=== PATIENT | female | born 1975 | race Caucasian/White ===

== ENCOUNTER → 2016-06-25 | Day surgery (SDC) | payer BC ==
[~2016-06-25] VITALS: Ht 30.5 cm; Wt 0.5 kg
[~2016-06-25] MED LIST: AMBIEN5 MG ORAL; ATIVAN1 MG ORAL; CATAPRES0.1 MG ORAL; CEPHALEXIN500 M1 ORAL; COREG12.5 MG ORAL; DILAUDID4 MG ORAL; Heparin 2000 units/Ns 1000ml INJ ONE; Lidocaine 1% Plain 30 ml INJ ONE; MACROBID100 MG ORAL; MORPHINE S10 MG/5 ML ORAL; NEXIUM40 MG ORAL; NORCO 10/3251 EA ORAL; NORMODYNE300 MG ORAL; OXYCODONE HCL15 M1 ORAL; OXYCONTIN40 MG ORAL; PROMETHAZINE HC50 MG ORAL; PROTONIX40 MG ORAL; REGLAN10 MG ORAL; Sodium Bicarbonate 8.4% 50ml Inj IV ONE; TRIBENZOR 40-11 EACH ORAL; TRIBENZOR 40-51 EACH ORAL; VALIUM10 MG ORAL; ZOFRAN ODT8 MG ORAL
--- NOTE | 2016-06-25 15:26 | Diagnostic Imaging Report ---
Indication: watermelon harvesting supervisor venous access Findings: After the indications, procedure, risks, complications, and alternatives of the procedure were explained, written informed consent was obtained. The right upper extremity was prepped with alcohol. All elements of maximal sterile barrier technique were followed including usage of a cap, mask, sterile gown, sterile gloves, hand hygiene and a large sterile sheet. Sonographic evaluation of the upper extremity was performed demonstrating a patent and compressible brachial vein. Access was obtained under real-time ultrasound guidance and digital image was saved and archived. An .018 wire was introduced. Needle exchanged for a 5 Spanish peel-away sheath. Measurements were obtained. A 5 Spanish dual-lumen Power PICC line catheter was cut to 8 cm and introduced over the wire. Peel-away sheath and wire were removed.Catheter was secured to the skin using 2-0 Prolene suture. Both ports aspirate and flush easily. Fluoroscopic Images show distal tip in the superior vena cava. Total fluoroscopic time 3.3 seconds Impression: Successful placement of an upper extremity PICC line catheter
== END | disposition home or self-care (01) ==
LOC: RAD 13:00 → SUR 13:00
DX: R11.2 Nausea with vomiting, unspecified (principal); R19.7 Diarrhea, unspecified; E86.0 Dehydration
CPT/HCPCS: 36569; 76937

== ENCOUNTER 2016-08-27 12:51 | Outpatient (CLI) | payer BC ==
[~2016-08-27] VITALS: Ht 152.4 cm; Wt 63.5 kg
[~2016-08-27 12:51] MED LIST changes: -Heparin 2000 units/Ns 1000ml INJ ONE; -Lidocaine 1% Plain 30 ml INJ ONE; -Sodium Bicarbonate 8.4% 50ml Inj IV ONE
[2016-08-27] MEDS ORDERED: Lidocaine 1% Plain 30 ml INJ ONE (14:00)
[2016-08-27] MEDS ORDERED: Heparin 2000 units/Ns 1000ml INJ ONE (14:00)
--- NOTE | 2016-08-27 15:47 | Diagnostic Imaging Report ---
Indications: Needs long-term IV access Technique: Procedural timeout performed. Informed consent the represent of the procedure. Ultrasound confirms patent compressible right basilic vein. Total sterile technique, including sterile probe cover and sterile gel, hat, mask, sterile gown, large sterile drape, and preparation with 2% chlorhexidine utilized. Local anesthesia with 1% lidocaine. Under real-time ultrasound guidance, puncture right basilic vein using 21-gauge needle, documented and archived, passage 0.018 guidewire under direct fluoroscopy, which was used to determine appropriate catheter length, exchange for 5 Greek peel-away sheath. 5 Greek Bard dual-lumen power PICC cut to 37 cm. It was inserted through the peel-away sheath. Peel-away sheath and guidewire removed. Catheter fixed to the skin. Both catheter ports aspirated and flushed. Patient tolerated procedure well, without immediate complication. Digital radiograph documents satisfactory catheter tip position, at the cavoatrial junction. Total fluoroscopy time one minutes. Total dose area product 17 dGycm2 Impression: Successful placement of right arm PICC under sonographic and fluoroscopic guidance, as described above.
== END 2016-08-27 14:51 | disposition home or self-care (01) ==
LOC: RAD 12:51
DX: E86.0 Dehydration (principal); R11.2 Nausea with vomiting, unspecified; R19.7 Diarrhea, unspecified
CPT/HCPCS: 36569; 76937; J1644; J2001

== ENCOUNTER 2017-05-01 12:51 | Outpatient (CLI) | payer BC ==
[~2017-05-01] VITALS: Ht 33 cm; Wt 0.5 kg
[~2017-05-01 12:51] MED LIST changes: +Heparin 2000 units/Ns 1000ml INJ ONE; +Lidocaine 1% Plain 30 ml INJ ONE
--- NOTE | 2017-05-01 15:04 | Diagnostic Imaging Report ---
Indications: Needs long-term IV access Technique: Informed consent obtained prior to this procedure. Procedure timeout performed. Ultrasound confirms patent compressible right brachial a small caliber right basilic vein. Total sterile technique, including sterile probe cover and sterile gel, hat, mask,, sterile gown, large sterile drape, and preparation with 2% chlorhexidine utilized. Local anesthesia with 1% lidocaine. Initial attempts made at accessing very small caliber basilic vein, without success. Under real-time ultrasound guidance, puncture ] vein using 21-gauge needle, documented and archived, passage 0.018 guidewire under direct fluoroscopy, which would not pass beyond the axilla. A 5 Beninese peel-away sheath was introduced. A Kumpe catheter was introduced, and a small amount of contrast injected, demonstrating a kink in the axillary vein. This was successfully negotiated with a hydrophilic guidewire, and the Kumpe catheter was then passed into the superior vena cava, used to introduce the measuring guidewire which was used to determine appropriate catheter length,. 5 Beninese Bard dual-lumen power PICC cut to 38 cm. It was inserted through the peel-away sheath. Peel-away sheath and guidewire removed. Catheter fixed to the skin. Both catheter ports aspirated and flushed. Patient tolerated procedure well, without immediate complication. Digital radiograph documents satisfactory catheter tip position, at the cavoatrial junction. Total fluoroscopy time 2.1 minutes. Total dose area product 22 dGycm2 Impression: Successful placement of right arm PICC under sonographic and fluoroscopic guidance, as described above.
== END 2017-05-01 14:51 | disposition home or self-care (01) ==
LOC: RAD 12:51
DX: E86.0 Dehydration (principal); R11.2 Nausea with vomiting, unspecified; R19.7 Diarrhea, unspecified
CPT/HCPCS: 36569; 76937; J1644; J2001; Q9967

== ENCOUNTER → 2017-11-11 | Outpatient (CLI) | payer BC ==
[~2017-11-11] VITALS: Ht 30.5 cm; Wt 0.5 kg
[~2017-11-11] MED LIST changes: -Heparin 2000 units/Ns 1000ml INJ ONE; +Heparin 2000 units/Ns 1000ml INJ SCH; -Lidocaine 1% Plain 30 ml INJ ONE; +Lidocaine 1% Plain 30 ml INJ SCH
--- NOTE | 2017-11-11 14:04 | Pre-Procedure Note/Attestation ---
Pre-Procedure Note/Attestation Complete Prior to Procedure Planned Procedure: not applicable Procedure Narrative: PICC Indications for Procedure Pre-Operative Diagnosis: needs long-term IV access Attestation I attest that I discussed the nature of the procedure; its benefits; risks and complications; and alternatives (and the risks and benefits of such alternatives ), prior to the procedure, with the patient (or the patient's legal compliance representative dealer). I attest that, if there was a reasonable possibility of needing a blood transfusion, the patient (or the patient's legal compliance representative dealer) was given the [facility] standardized written summary, pursuant to the [place] Blood Safety Act ([place] Health and Safety Code # 1645, as amended). I attest that I re-evaluated the patient just prior to the surgery and that there has been no change in the patient's H&P, except as documented below: Hernandez Napier MD Nov 11, 2017 14:04
--- NOTE | 2017-11-11 14:35 | Diagnostic Imaging Report ---
Indications: Needs long-term IV access Technique: Informed consent obtained prior to commencement of the procedure. Procedural timeout performed. Ultrasound confirms patent compressible right brachial vein. Total sterile technique, including sterile probe cover and sterile gel, hat, mask, sterile gown, large sterile drape, and preparation with 2% chlorhexidine utilized. Local anesthesia with 1% lidocaine. Under real-time ultrasound guidance, puncture the more medial of 2 paired right brachial vein using 21-gauge needle, documented and archived, passage 0.018 guidewire under direct fluoroscopy, which as previously would not pass beyond the axilla. Small amount of contrast injected, confirming kink, as before, within the brachial vein before entering the axillary vein. Kumpe catheter and hydrophilic guidewire were used to negotiate exchange, and the catheter and guidewire were directed to the superior vena cava. Original 0.018 guidewire inserted, Kumpe catheter removed. Guidewire used to determine appropriate catheter length, exchange for 5 Congolese peel-away sheath. 5 Congolese Bard dual-lumen power PICC cut to 31 cm. It was inserted through the peel-away sheath. Peel-away sheath and guidewire removed. Catheter fixed to the skin. Both catheter ports aspirated and flushed. Patient tolerated procedure well, without immediate complication. Digital radiograph documents satisfactory catheter tip position, at the cavoatrial junction. Total fluoroscopy time 3.7 minutes. Total dose area product 49 dGycm2 Total number of images: 3 Impression: Successful placement of right arm PICC under sonographic and fluoroscopic guidance, as described above.
== END | disposition home or self-care (01) ==
LOC: RAD 13:05
DX: R10.0 Acute abdomen (principal); E86.0 Dehydration; M54.89 Other dorsalgia; M62.838 Other muscle spasm; R11.2 Nausea with vomiting, unspecified; R19.7 Diarrhea, unspecified
CPT/HCPCS: 36569; 76937; J1644; J2001

== ENCOUNTER 2018-05-12 10:54 | Outpatient (CLI) | payer BC ==
[~2018-05-12] VITALS: Ht 152.4 cm; Wt 61.2 kg
[~2018-05-12 10:54] MED LIST changes: -Heparin 2000 units/Ns 1000ml INJ SCH; +Heparin1,000 units/500ml Premix(Conc:2 units/ml) INJ ONE; +Heparin1,000 units/500ml Premix(Conc:2 units/ml) INJ PRN; +Lidocaine 1% Plain 30 ml INJ ONE; +Lidocaine 1% Plain 30 ml INJ PRN; -Lidocaine 1% Plain 30 ml INJ SCH
--- NOTE | 2018-05-12 12:11 | Diagnostic Imaging Report ---
Indication: moth exterminator venous access Findings: After the indications, procedure, risks, complications, and alternatives of the procedure were explained, written informed consent was obtained. The left upper extremity was prepped with alcohol. All elements of maximal sterile barrier technique were followed including usage of a cap, mask, sterile gown, sterile gloves, hand hygiene and a large sterile sheet. Sonographic evaluation of the upper extremity was performed demonstrating a patent and compressible brachial vein. Access was obtained under real-time ultrasound guidance (with utilization of sterile gel and sterile probe cover) and digital image was saved and archived. An .018 wire was introduced. Needle exchanged for a 5 Mont[place]grin peel-away sheath. Measurements were obtained. A 5 Montenegrin dual-lumen Power PICC line catheter was cut to 35 cm and introduced over the wire. Peel-away sheath and wire were removed.Catheter was secured to the skin using 2-0 Prolene suture. Both ports aspirate and flush easily. A single fluoroscopic image shows the distal tip in the superior vena cava. Total fluoroscopic time 21 seconds. Impression: Successful placement of an upper extremity PICC line catheter
== END 2018-05-12 12:54 | disposition home or self-care (01) ==
LOC: RAD 10:54
DX: R11.2 Nausea with vomiting, unspecified (principal); E86.0 Dehydration; M54.9 Dorsalgia, unspecified; M62.838 Other muscle spasm
CPT/HCPCS: 36569; 76937; J1644; J2001

== ENCOUNTER 2018-12-28 10:30 | Outpatient (CLI) | payer BC ==
[~2018-12-28] VITALS: Ht 152.4 cm; Wt 61.2 kg
[~2018-12-28 10:30] MED LIST changes: -Heparin1,000 units/500ml Premix(Conc:2 units/ml) INJ ONE; -Heparin1,000 units/500ml Premix(Conc:2 units/ml) INJ PRN; -Lidocaine 1% Plain 30 ml INJ ONE; -Lidocaine 1% Plain 30 ml INJ PRN
[2018-12-28] MEDS ORDERED: Heparin1,000 units/500ml Premix(Conc:2 units/ml) ONE (10:31)
[2018-12-28] MEDS ORDERED: Lidocaine 1% Plain 30 ml INJ ONE (10:31)
--- NOTE | 2018-12-28 15:07 | Diagnostic Imaging Report ---
Indication: termite control technician venous access Findings: After the indications, procedure, risks, complications, and alternatives of the procedure were explained, written informed consent was obtained. The left upper extremity was prepped with alcohol. All elements of maximal sterile barrier technique were followed including usage of a cap, mask, sterile gown, sterile gloves, hand hygiene and a large sterile sheet. Sonographic evaluation of the upper extremity was performed demonstrating a patent and compressible brachial vein. Access was obtained under real-time ultrasound guidance (with utilization of sterile gel and sterile probe cover) and digital image was saved and archived. An .018 wire was introduced. Needle exchanged for a 5 [place] peel-away sheath. Measurements were obtained. A 5 [place] dual-lumen Power PICC line catheter was cut to 35 cm and introduced over the wire. Peel-away sheath and wire were removed.Catheter was secured to the skin using 2-0 Prolene suture. Both ports aspirate and flush easily. A single fluoroscopic image shows the distal tip in the superior vena cava. Total fluoroscopic time was 21.8 seconds. Impression: Successful placement of an upper extremity PICC line catheter
== END 2018-12-28 12:30 | disposition home or self-care (01) ==
LOC: RAD 10:30 → EDSTATUS 10:30 → RAD 12:30
DX: Z79.899 Other long term (current) drug therapy (principal); M62.838 Other muscle spasm
CPT/HCPCS: 36569; 76937; J1644; J2001

== ENCOUNTER 2019-05-04 08:56 | Outpatient (CLI) | payer BC ==
[~2019-05-04] VITALS: Ht 152.4 cm; Wt 65.8 kg
[2019-05-04] MEDS ORDERED: Lidocaine 1% Plain 30 ml INJ PRN (09:00)
[2019-05-04] MEDS ORDERED: Heparin1,000 units/500ml Premix(Conc:2 units/ml) INJ PRN (09:00)
--- NOTE | 2019-05-04 11:56 | Diagnostic Imaging Report ---
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 The left upper extremity was prepped with alcohol. All elements of maximal sterile barrier technique were followed including usage of a cap, mask, sterile gown, sterile gloves, hand hygiene and a large sterile sheet. Sonographic evaluation of the upper extremity was performed demonstrating a patent and compressible basilic vein. Access was obtained under real-time ultrasound guidance (with utilization of sterile gel and sterile probe cover) and digital image was saved and archived. An .018 wire was introduced. Needle exchanged for a 5 Romanian peel-away sheath. Measurements were obtained. A 5 Romanian dual-lumen Power PICC line catheter was cut to 35 cm and introduced over the wire. Peel-away sheath and wire were removed.Catheter was secured to the skin using 2-0 Prolene suture. Both ports aspirate and flush easily. A single fluoroscopic image shows the distal tip in the superior vena cava. Total fluoroscopic time: 86.9 seconds. Impression: Successful placement of an upper extremity PICC line catheter
== END 2019-05-04 10:56 | disposition home or self-care (01) ==
LOC: RAD 08:56 → EDSTATUS 09:00 → RAD 10:56
DX: Z79.899 Other long term (current) drug therapy (principal)
CPT/HCPCS: 36569; 76937; J1644; J2001